=== PATIENT | male | born 1970 | race African-American/Black ===

== ENCOUNTER 2023-12-11 12:55 | Inpatient (IN) ==
[2023-12-11 13:21] LABS: Venous Bicarbonate HCO3 21.3 mmol/L (24-28)
[2023-12-11] MEDS: Cefepime 2 GM in Dextrose 2 GM/50 ML BAG IV ONE (13:24)
[2023-12-11 13:27] LABS: Hematocrit 38.9 % (38-53); Hemoglobin 12.8 g/dL (13.2-16.3); Mean Corpuscular Hemoglobin 27.3 pg (27-33); Mean Corpuscular Hgb Conc 32.9 g/dL (31-36); Mean Corpuscular Volume 82.9 fL (80-97); Mean Platelet Volume 8.8 fL (7.5-11.2); Platelet Count 282 10^3/uL (150-450); Red Blood Count 4.69 10^6/uL (4.06-5.63); Red Cell Distribution Width 13.8 % (12-17); White Blood Count 6.3 10^3/uL (3.6-10.2)
[2023-12-11 13:37] LABS: INR 0.98 (0.83-1.13)
[2023-12-11] MEDS: Lactated Ringers 1000 ml BAG IV.FLUID IV ONE (13:40)
[2023-12-11 13:56] LABS: ABS Basophils 0.1 10^3/uL (0.0-0.1); ABS Eosinophils 0.6 10^3/uL (0.0-0.5); ABS Lymphocytes 2.7 10^3/uL (1.0-4.8); ABS Monocytes 0.3 10^3/uL (0.0-1.1); ABS Neutrophils 2.7 10^3/uL (1.5-7.6); ABS Nucleated RBC 0.03 10^3/ul; Eosinophil % 8.9 %; Nucleated Red Blood Cells % 0.4 %/100WBC (0.0-0.8); RBC Morphology Normal (Normal)
[2023-12-11] MEDS ORDERED: Ondansetron 4 mg VIAL 2 MG/ML 2 ml VIAL ONE (14:02)
[2023-12-11] MEDS: metroNIDAZOLE IV 500 MG/100ML 500 MG/100 ML BAG IVPB ONE (14:06)
[2023-12-11] MEDS: Ondansetron 4 mg VIAL 2 MG/ML 2 ml VIAL IV ONE (14:22)
[2023-12-11] MEDS: Pantoprazole VIAL 40 MG VIAL IV ONE (14:22)
[2023-12-11 14:23] LABS: Albumin 4.7 g/dL (3.2-5.2); Albumin/Globulin Ratio 1.6 (1-3); C Reactive Protein 2.93 mg/L (<8.01); Calcium 10.4 mg/dL (8.6-10.3); Creatinine, Serum 1.41 mg/dL (0.67-1.17); Potassium 4.1 mmol/L (3.5-5.0); Total Bilirubin 0.8 mg/dL (0.2-1.0); Total Protein 7.7 g/dL (6.4-8.9); eGFR CKD-EPI 58.9 (>60)
[2023-12-11] MEDS ORDERED: Dextrose 50% Syringe 50 ml 25 GM/50 ML SYRINGE IV PUSH PRN (14:30)
[2023-12-11] MEDS: Lactated Ringers 1000 ml BAG 1,000 ML IV ONE (14:39)
[2023-12-11] MEDS: NORMOSOL-R pH 7.4 1000 mL BAG 1,000 ML IV ONE (14:40)
[2023-12-11 14:54] LABS: High Sensitivity Troponin 1 Hr 12 pg/mL (<20)
[2023-12-11] MEDS: Iodixanol (CONTRAST) 320 MG/ML 100 ML SDV IV ONE (15:08)
[2023-12-11] MEDS ORDERED: Vancomycin 1,000 MG in NS 0.9% 250 ml 250 ML IVPB SCH (16:00)
[2023-12-11] MEDS: Thiamine 100 MG/ML 2 ml VIAL 500 MG in NS 0.9% 250 ml 250 ML IV SCH (18:58)
[2023-12-11] MEDS: NORMOSOL-R pH 7.4 1000 mL BAG 1,000 ML IV SCH (19:09)
[2023-12-11] MEDS: Metoclopramide 5 MG/ML VIAL (10 mg) IV SLOW PU ONE (19:13)
[2023-12-11 19:40] LABS: Calcium 9.4 mg/dL (8.6-10.3); Creatinine, Serum 1.2 mg/dL (0.67-1.17); Potassium 4.5 mmol/L (3.5-5.0); eGFR CKD-EPI 71.4 (>60)
[2023-12-11 20:06] LABS: Venous Bicarbonate HCO3 19.1 mmol/L (24-28)
[2023-12-11 20:45] LABS: Urine Appearance Clear; Urine Bacteria Absent /HPF (Absent); Urine Bilirubin Negative (Negative); Urine Blood 1+ (Negative); Urine Color Colorless; Urine Glucose 4+ (>=1000 mg/dL) (Negative); Urine Ketones 2+ (Negative); Urine Nitrite Negative (Negative); Urine Protein Negative (Negative); Urine Red Blood Cell 3+(>10/hpf) /HPF (0-Trace); Urine Urobilinogen Negative (Negative); Urine White Blood Cell Trace(0-5/hpf) /HPF (0-Trace); Urine pH 5.5 (5.0-8.0)
[2023-12-11] MEDS: Insulin Infusion 100unit/100mL 100 UNIT/100 ML BAG IV SCH (21:08)
[2023-12-11] MEDS ORDERED: Ondansetron 4 mg VIAL 2 MG/ML 2 ml VIAL IV PRN (21:13)
[2023-12-11 22:29] LABS: Glucose Confirmatory 460 mg/dL (70-100)
[2023-12-11] MEDS: Enoxaparin 40 MG/0.4 ML SYR SUBCUT SCH (22:39)
[2023-12-11 22:50] LABS: Creatinine, Serum 1.25 mg/dL (0.67-1.17); Magnesium 1.8 mg/dL (1.9-2.7); Phosphorus 5.2 mg/dL (2.5-5.0); Potassium 4.8 mmol/L (3.5-5.0)
[2023-12-12 01:13] LABS: Venous Bicarbonate HCO3 22.6 mmol/L (24-28)
[2023-12-12] MEDS: Magnesium Sulfate IV 1GM/100ML 1 GM/100 ML BAG IV ONE (02:18)
[2023-12-12] MEDS: D5W 1/2 NS 1000 ml BAG 1,000 ML IV SCH (02:19)
[2023-12-12 02:21] LABS: Calcium 8.7 mg/dL (8.6-10.3); Creatinine, Serum 1.27 mg/dL (0.67-1.17); Magnesium 1.9 mg/dL (1.9-2.7); Phosphorus 3.5 mg/dL (2.5-5.0); Potassium 3.7 mmol/L (3.5-5.0); eGFR CKD-EPI 66.7 (>60)
[2023-12-12 05:41] LABS: Venous Bicarbonate HCO3 28.1 mmol/L (24-28)
[2023-12-12 05:47] LABS: ABS Basophils 0.1 10^3/uL (0.0-0.1); ABS Lymphocytes 0.9 10^3/uL (1.0-4.8); ABS Monocytes 0.8 10^3/uL (0.0-1.1); ABS Neutrophils 11.6 10^3/uL (1.5-7.6); Eosinophil % 0.2 %; Hematocrit 30.5 % (38-53); Hemoglobin 10.2 g/dL (13.2-16.3); Lymphocyte % 6.5 %; Mean Corpuscular Hemoglobin 27.1 pg (27-33); Mean Corpuscular Hgb Conc 33.3 g/dL (31-36); Mean Corpuscular Volume 81.4 fL (80-97); Mean Platelet Volume 7.8 fL (7.5-11.2); Platelet Count 238 10^3/uL (150-450); Red Blood Count 3.75 10^6/uL (4.06-5.63); Red Cell Distribution Width 14.2 % (12-17); White Blood Count 13.4 10^3/uL (3.6-10.2)
[2023-12-12 06:26] LABS: Calcium 8.7 mg/dL (8.6-10.3); Creatinine, Serum 1.21 mg/dL (0.67-1.17); Magnesium 2.1 mg/dL (1.9-2.7); Phosphorus 1.4 mg/dL (2.5-5.0); Potassium 3.5 mmol/L (3.5-5.0); eGFR CKD-EPI 70.7 (>60)
[2023-12-12] MEDS: KCL 20 MEQ/100 ML IVPREMIX 20 MEQ/100 ML BAG IV SCH (06:31)
[2023-12-12] MEDS: Thiamine IV 500 MG in NS 0.9% 250 ML (Wernicke-Korsakoff) IV SCH (07:34)
[2023-12-12] MEDS: Insulin GLARGINE 100 un/ml 10 ml VIAL SUBCUT SCH (10:11)
[2023-12-12] MEDS: ceFAZolin 2 GM PREMIX 2 GM/50 ML BAG IV SCH (10:14)
[2023-12-12] MEDS: Potassium & Sodium Phos 250 mg = 1 PACKET PO SCH (10:14)
[2023-12-12 10:23] LABS: Venous Bicarbonate HCO3 27.1 mmol/L (24-28)
[2023-12-12 11:04] LABS: Calcium 8.5 mg/dL (8.6-10.3); Creatinine, Serum 1.12 mg/dL (0.67-1.17); Phosphorus 1.1 mg/dL (2.5-5.0); Potassium 3.3 mmol/L (3.5-5.0); eGFR CKD-EPI 77.6 (>60)
[2023-12-12] MEDS: Polymyx/Trimethoprim OPTH.SOL 1 BTL RIGHT EYE SCH (12:11)
[2023-12-12] MEDS: Potassium Phosphate IV 15 MMOL in NS 0.9% 250 ml 250 ML IVPB ONE (13:46)
[2023-12-12] MEDS ORDERED: Vancomycin per Pharmacy 1 EA NOTE FOLLOW UP SCH (14:00)
[2023-12-12] MEDS: VANCOMYCIN 1500 MG X 1 DOSE, THEN PER PHARMACY PROTOCOL IVPB ONE (15:09)
[2023-12-12] MEDS: Potassium Chlor 20 meq TAB.ER PO ONE (18:45)
[2023-12-12] MEDS: Potassium Phosphate IV 30 MMOL in NS 0.9% 250 ml 250 ML IVPB ONE (20:58)
[2023-12-13] MEDS: Vancomycin 1000 MG in NS 0.9% 250 ML IVPB SCH (03:10)
[2023-12-13 04:58] LABS: ABS Basophils 0.1 10^3/uL (0.0-0.1); ABS Eosinophils 0.3 10^3/uL (0.0-0.5); ABS Monocytes 0.6 10^3/uL (0.0-1.1); ABS Neutrophils 7.8 10^3/uL (1.5-7.6); Eosinophil % 3.5 %; Hematocrit 29.2 % (38-53); Hemoglobin 10.1 g/dL (13.2-16.3); Lymphocyte % 10.3 %; Mean Corpuscular Hemoglobin 28.3 pg (27-33); Mean Corpuscular Hgb Conc 34.5 g/dL (31-36); Mean Corpuscular Volume 81.9 fL (80-97); Mean Platelet Volume 7.7 fL (7.5-11.2); Platelet Count 213 10^3/uL (150-450); Red Blood Count 3.57 10^6/uL (4.06-5.63); Red Cell Distribution Width 14.2 % (12-17); White Blood Count 9.8 10^3/uL (3.6-10.2)
[2023-12-13 05:42] LABS: Calcium 8.1 mg/dL (8.6-10.3); Creatinine, Serum 0.94 mg/dL (0.67-1.17); Magnesium 1.8 mg/dL (1.9-2.7); Phosphorus 4.8 mg/dL (2.5-5.0); Potassium 4.2 mmol/L (3.5-5.0); eGFR CKD-EPI 95.7 (>60)
[2023-12-13] MEDS: Magnesium Sulfate 2 gm BAG 2 GM/50 ML BAG IVPB ONE (08:24)
[2023-12-14 03:52] LABS: ABS Basophils 0.1 10^3/uL (0.0-0.1); ABS Eosinophils 0.4 10^3/uL (0.0-0.5); ABS Lymphocytes 0.8 10^3/uL (1.0-4.8); ABS Monocytes 0.5 10^3/uL (0.0-1.1); ABS Neutrophils 7.3 10^3/uL (1.5-7.6); ABS Nucleated RBC 0.01 10^3/ul; Eosinophil % 4.9 %; Hematocrit 30.8 % (38-53); Hemoglobin 10.3 g/dL (13.2-16.3); Lymphocyte % 9.1 %; Mean Corpuscular Hemoglobin 27.4 pg (27-33); Mean Corpuscular Hgb Conc 33.5 g/dL (31-36); Mean Corpuscular Volume 81.7 fL (80-97); Mean Platelet Volume 7.4 fL (7.5-11.2); Nucleated Red Blood Cells % 0.1 %/100WBC (0.0-0.8); Platelet Count 216 10^3/uL (150-450); Red Blood Count 3.77 10^6/uL (4.06-5.63); Red Cell Distribution Width 14.2 % (12-17); White Blood Count 9.1 10^3/uL (3.6-10.2)
[2023-12-14 04:17] LABS: Calcium 8.4 mg/dL (8.6-10.3); Creatinine, Serum 0.77 mg/dL (0.67-1.17); Magnesium 2.1 mg/dL (1.9-2.7); Phosphorus 3.3 mg/dL (2.5-5.0); Potassium 3.9 mmol/L (3.5-5.0); eGFR CKD-EPI 105.7 (>60)
[2023-12-14] MEDS ORDERED: Thiamine IV 100 MG/ML VIAL (only for Bannana Bags !) IVPB SCH (09:00)
[2023-12-14] MEDS: Thiamine IV 250 MG in NS 0.9% 100 ML Q24H IV SCH (09:38)
[2023-12-14 10:26] VITALS: BP 148/98
[2023-12-14] MEDS ORDERED: Vancomycin Trough Check NOTE FOLLOW UP ONE (14:30)
== END 2023-12-14 11:15 | disposition home or self-care (01) | DRG 638 ==
LOC: ED 12:55 → EDHOLD 15:41 → ICU 16:19
PROVIDERS: ADMIT Internal Medicine Critical Care Medicine; ATTEND Internal Medicine Critical Care Medicine

== ENCOUNTER 2023-12-31 07:07 | Inpatient (IN) ==
[2023-12-31] MEDS: Lactated Ringers 1000 ml BAG 1,000 ML IV SCH ×2 (08:02→10:21)
[2023-12-31 08:03] LABS: Venous Bicarbonate HCO3 19.3 mmol/L (24-28)
[2023-12-31 08:14] LABS: ABS Basophils 0.1 10^3/uL (0.0-0.1); ABS Eosinophils 0.2 10^3/uL (0.0-0.5); ABS Lymphocytes 0.9 10^3/uL (1.0-4.8); ABS Monocytes 0.3 10^3/uL (0.0-1.1); ABS Neutrophils 5.2 10^3/uL (1.5-7.6); ABS Nucleated RBC 0.01 10^3/ul; Eosinophil % 3.6 %; Hematocrit 32.4 % (38-53); Hemoglobin 10.6 g/dL (13.2-16.3); Lymphocyte % 13.5 %; Mean Corpuscular Hemoglobin 27.8 pg (27-33); Mean Corpuscular Hgb Conc 32.6 g/dL (31-36); Mean Corpuscular Volume 85.3 fL (80-97); Mean Platelet Volume 7.9 fL (7.5-11.2); Nucleated Red Blood Cells % 0.1 %/100WBC (0.0-0.8); Platelet Count 365 10^3/uL (150-450); Red Cell Distribution Width 13.8 % (12-17); White Blood Count 6.7 10^3/uL (3.6-10.2)
[2023-12-31 08:32] LABS: Lipase < 10 U/L (11.0-82.0); Magnesium 1.7 mg/dL (1.9-2.7); Phosphorus 3.7 mg/dL (2.5-5.0)
[2023-12-31 08:38] LABS: Albumin/Globulin Ratio 1.4 (1-3); Calcium 9.3 mg/dL (8.6-10.3); Creatinine, Serum 1.18 mg/dL (0.67-1.17); Globulin 2.9 g/dL (2-4); Magnesium 1.9 mg/dL (1.9-2.7); Phosphorus 3.9 mg/dL (2.5-5.0); Potassium 4.8 mmol/L (3.5-5.0); Total Bilirubin 0.6 mg/dL (0.2-1.0); Total Protein 6.9 g/dL (6.4-8.9); eGFR CKD-EPI 72.9 (>60)
[2023-12-31] MEDS: Ondansetron 4 mg VIAL 2 MG/ML 2 ml VIAL IV ONE (08:47)
[2023-12-31 09:44] LABS: High Sensitivity Troponin 1 Hr 4 pg/mL (<20)
[2023-12-31] MEDS ORDERED: Dextrose 50% Syringe 50 ml 25 GM/50 ML SYRINGE IV PUSH PRN ×3 (09:49→15:57)
[2023-12-31] MEDS: KCL 20 MEQ/100 ML IVPREMIX 20 MEQ/100 ML BAG IV ONE (10:09)
[2023-12-31] MEDS: Magnesium Sulfate 2 gm BAG 2 GM/50 ML BAG IVPB ONE (10:09)
[2023-12-31] MEDS: Insulin Infusion 100unit/100mL 100 UNIT/100 ML BAG IV SCH ×2 (10:16→16:36)
[2023-12-31] MEDS: Prochlorperazine 5 mg/ml 2 ml VIAL (10 mg) IV ONE (10:20)
[2023-12-31 10:46] LABS: Urine Appearance Clear; Urine Bacteria Absent /HPF (Absent); Urine Bilirubin Negative (Negative); Urine Blood 2+ (Negative); Urine Color Colorless; Urine Glucose 4+ (>=1000 mg/dL) (Negative); Urine Ketones 2+ (Negative); Urine Nitrite Negative (Negative); Urine Protein Negative (Negative); Urine Red Blood Cell 3+(>10/hpf) /HPF (0-Trace); Urine Urobilinogen Negative (Negative); Urine White Blood Cell Absent /HPF (0-Trace); Urine pH 5.5 (5.0-8.0)
[2023-12-31 12:46] LABS: Venous Bicarbonate HCO3 18.8 mmol/L (24-28)
[2023-12-31] MEDS ORDERED: Ondansetron 4 mg VIAL 2 MG/ML 2 ml VIAL IV PRN (13:29)
[2023-12-31] MEDS ORDERED: Insulin Infusion 100unit/100mL 100 UNIT/100 ML BAG IV SCH ×2 (14:00→17:00)
[2023-12-31] MEDS: Pantoprazole VIAL 40 MG VIAL IV ONE (14:02)
[2023-12-31] MEDS: Enoxaparin 60 MG/0.6 ML SYR SUBCUT SCH (14:15)
[2023-12-31] MEDS: Potassium Chloride IV 20 MEQ in Lactated Ringers 1000 ml BAG 1,000 ML IVPB SCH (14:31)
[2023-12-31 14:34] LABS: Glucose Confirmatory 446 mg/dL (70-100)
[2023-12-31 14:35] LABS: Urine Benzodiazepine Screen None Detected (None Detect); Urine Cannabinoids Screen None Detected (None Detect); Urine Opiates Screen None Detected (None Detect)
[2023-12-31 14:59] LABS: Calcium 9.3 mg/dL (8.6-10.3); Creatinine, Serum 1.24 mg/dL (0.67-1.17); Magnesium 2.3 mg/dL (1.9-2.7); Phosphorus 3.3 mg/dL (2.5-5.0); Potassium 4.4 mmol/L (3.5-5.0); eGFR CKD-EPI 68.7 (>60)
[2023-12-31] MEDS: Insulin GLARGINE 100 un/ml 10 ml VIAL SUBCUT ONE (16:33)
[2023-12-31] MEDS: Lactated Ringers 1000 ml BAG 1,000 ML IV ONE (16:36)
[2023-12-31 20:51] LABS: Calcium 8.9 mg/dL (8.6-10.3); Creatinine, Serum 1.2 mg/dL (0.67-1.17); Potassium 4.3 mmol/L (3.5-5.0); eGFR CKD-EPI 71.4 (>60)
[2023-12-31] MEDS: Enoxaparin 40 MG/0.4 ML SYR SUBCUT SCH (21:23)
[2023-12-31 23:59] LABS: Calcium 8.8 mg/dL (8.6-10.3); Creatinine, Serum 1.06 mg/dL (0.67-1.17); Potassium 4.4 mmol/L (3.5-5.0); eGFR CKD-EPI 82.9 (>60)
[2024-01-01 05:59] LABS: ABS Basophils 0.1 10^3/uL (0.0-0.1); ABS Eosinophils 0.2 10^3/uL (0.0-0.5); ABS Lymphocytes 1.4 10^3/uL (1.0-4.8); ABS Monocytes 0.6 10^3/uL (0.0-1.1); ABS Neutrophils 7.4 10^3/uL (1.5-7.6); Eosinophil % 2.3 %; Hematocrit 31.1 % (38-53); Hemoglobin 10.4 g/dL (13.2-16.3); Lymphocyte % 14.6 %; Mean Corpuscular Hemoglobin 27.4 pg (27-33); Mean Corpuscular Hgb Conc 33.5 g/dL (31-36); Mean Corpuscular Volume 81.9 fL (80-97); Mean Platelet Volume 7.3 fL (7.5-11.2); Platelet Count 361 10^3/uL (150-450); Red Cell Distribution Width 13.9 % (12-17); White Blood Count 9.8 10^3/uL (3.6-10.2)
[2024-01-01 06:21] LABS: Calcium 8.8 mg/dL (8.6-10.3); Creatinine, Serum 1.05 mg/dL (0.67-1.17); eGFR CKD-EPI 83.8 (>60)
[2024-01-01] MEDS: Insulin GLARGINE 100 un/ml 10 ml VIAL SUBCUT SCH (09:09)
[2024-01-02 06:15] LABS: ABS Basophils 0.1 10^3/uL (0.0-0.1); ABS Eosinophils 0.2 10^3/uL (0.0-0.5); ABS Monocytes 0.3 10^3/uL (0.0-1.1); ABS Neutrophils 2.6 10^3/uL (1.5-7.6); Eosinophil % 5.2 %; Hematocrit 28.8 % (38-53); Hemoglobin 9.8 g/dL (13.2-16.3); Lymphocyte % 23.5 %; Mean Corpuscular Hgb Conc 34.2 g/dL (31-36); Platelet Count 295 10^3/uL (150-450); Red Blood Count 3.51 10^6/uL (4.06-5.63); Red Cell Distribution Width 13.9 % (12-17); White Blood Count 4.3 10^3/uL (3.6-10.2)
[2024-01-02 06:49] LABS: Calcium 8.3 mg/dL (8.6-10.3); Creatinine, Serum 0.91 mg/dL (0.67-1.17); Potassium 3.8 mmol/L (3.5-5.0); eGFR CKD-EPI 99.5 (>60)
[2024-01-02 15:41] VITALS: BP 163/104
== END 2024-01-02 19:30 | disposition home or self-care (01) | DRG 638 ==
LOC: ED 07:07 → EDHOLD 13:21 → SUATTDRO 13:21 → ICU 14:38 → EDHOLD 15:43 → MEDTELE 20:02
PROVIDERS: ADMIT Internal Medicine; ATTEND Student in an Organized Health Care Education/Training Program

== ENCOUNTER 2024-01-18 13:55 | Inpatient (IN) ==
[2024-01-18] MEDS: Lactated Ringers 1000 ml BAG 1,000 ML IV ONE (14:30)
[2024-01-18 14:39] LABS: Venous Bicarbonate HCO3 13.3 mmol/L (24-28)
[2024-01-18] MEDS: Ondansetron 4 mg VIAL 2 MG/ML 2 ml VIAL IV ONE ×2 (14:52→15:56)
[2024-01-18 14:54] LABS: INR 1.13 (0.85-1.14)
[2024-01-18 15:20] LABS: ALT 11 U/L (7-52); AST 10 U/L (13-39); Albumin 4.5 g/dL (3.2-5.2); Albumin/Globulin Ratio 1.3 (1-3); Alcohol, S < 13 mg/dL (<13); Alkaline Phosphatase 112 U/L (35-149); Anion Gap 28 mmol/L (2-16); Blood Urea Nitrogen 27 mg/dL (6-24); C Reactive Protein 6.89 mg/L (<8.01); CO2 Carbon Dioxide 15 mmol/L (22-32); Calcium 10.2 mg/dL (8.6-10.3); Chloride 87 mmol/L (101-111); Creatinine, Serum 1.73 mg/dL (0.67-1.17); Globulin 3.5 g/dL (2-4); Potassium 5.5 mmol/L (3.5-5.0); Sodium 130 mmol/L (135-145); Total Bilirubin 0.9 mg/dL (0.2-1.0)
[2024-01-18] MEDS ORDERED: Dextrose 50% Syringe 50 ml 25 GM/50 ML SYRINGE IV PUSH PRN (15:23)
[2024-01-18 15:37] LABS: Hematocrit 37.3 % (38-53); Hemoglobin 11.1 g/dL (13.2-16.3); Mean Corpuscular Hemoglobin 26.6 pg (27-33); Mean Corpuscular Hgb Conc 29.6 g/dL (31-36); Mean Corpuscular Volume 89.9 fL (80-97); Mean Platelet Volume 7.6 fL (7.5-11.2); Platelet Count 511 10^3/uL (150-450); Red Blood Count 4.16 10^6/uL (4.06-5.63); Red Cell Distribution Width 14.8 % (12-17); White Blood Count 19.3 10^3/uL (3.6-10.2)
[2024-01-18 15:38] LABS: ABS Basophils 0.1 10^3/uL (0.0-0.1); ABS Lymphocytes 0.3 10^3/uL (1.0-4.8); ABS Monocytes 0.3 10^3/uL (0.0-1.1); ABS Neutrophils 18.6 10^3/uL (1.5-7.6); Lymphocyte % 1.6 %
[2024-01-18] MEDS: NORMOSOL-R pH 7.4 1000 mL BAG 1,000 ML IV SCH ×2 (15:49→16:20)
[2024-01-18 15:57] LABS: Glucose 864 mg/dL (70-100)
[2024-01-18] MEDS: Insulin GLARGINE 100 un/ml 10 ml VIAL SUBCUT ONE (16:12)
[2024-01-18] MEDS: cefTRIAXone 1 gm/50 mL D5W 1 GM/50 ML BAG IV ONE (16:13)
[2024-01-18] MEDS: Insulin Infusion 100unit/100mL 100 UNIT/100 ML BAG IV SCH (16:20)
[2024-01-18 18:07] LABS: Urine Appearance Clear; Urine Bilirubin Negative (Negative); Urine Blood Negative (Negative); Urine Color Colorless; Urine Glucose 4+ (>=1000 mg/dL) (Negative); Urine Ketones 2+ (Negative); Urine Nitrite Negative (Negative); Urine Protein Negative (Negative); Urine Urobilinogen Negative (Negative)
[2024-01-18 18:47] LABS: % Iron Saturation 7 % (15-55); .Transferrin 210 mg/dL (203-362); Anion Gap 23 mmol/L (2-16); Blood Urea Nitrogen 27 mg/dL (6-24); CO2 Carbon Dioxide 18 mmol/L (22-32); Calcium 9.1 mg/dL (8.6-10.3); Chloride 93 mmol/L (101-111); Creatinine, Serum 1.62 mg/dL (0.67-1.17); Glucose 731 mg/dL (70-100); Iron < 20 ug/dL (50-212); Magnesium 2.3 mg/dL (1.9-2.7); Potassium 4.7 mmol/L (3.5-5.0); Sodium 134 mmol/L (135-145); Total Iron Binding Capacity 294 mcg/dL (250-450); Unsaturated Iron Binding 274 ug/dL; eGFR CKD-EPI 49.8 (>60)
[2024-01-18 19:26] LABS: Ferritin 67.8 ng/mL (24-336)
[2024-01-18 19:29] LABS: Folate 12.24 ng/mL (5.90-24.80)
[2024-01-18 19:30] LABS: Vitamin B12 415 pg/mL (180-914)
[2024-01-18] MEDS ORDERED: Heparin 5000 UNITS/ML 1 mL VIAL SUBCUT SCH (21:00)
[2024-01-18 21:23] LABS: Calcium 9.4 mg/dL (8.6-10.3); Creatinine, Serum 1.58 mg/dL (0.67-1.17); Magnesium 2.3 mg/dL (1.9-2.7); Potassium 4.3 mmol/L (3.5-5.0); eGFR CKD-EPI 51.3 (>60)
[2024-01-18] MEDS: Enoxaparin 40 MG/0.4 ML SYR SUBCUT SCH (21:34)
[2024-01-18 21:54] LABS: Glucose Confirmatory 496 mg/dL (70-100)
[2024-01-18 23:04] LABS: Glucose Confirmatory 440 mg/dL (70-100)
[2024-01-18] MEDS: Iodixanol (CONTRAST) 320 MG/ML 100 ML SDV IV ONE (23:51)
[2024-01-18] MEDS: Ondansetron 4 mg VIAL 2 MG/ML 2 ml VIAL IV PRN (23:55)
[2024-01-19] MEDS: D5LR 20 MEQ KCL 1000 ml BAG 1,000 ML IV SCH (03:44)
[2024-01-19 03:59] LABS: Calcium 9.2 mg/dL (8.6-10.3); Creatinine, Serum 1.45 mg/dL (0.67-1.17); Magnesium 2.2 mg/dL (1.9-2.7); Potassium 3.8 mmol/L (3.5-5.0); eGFR CKD-EPI 56.9 (>60)
[2024-01-19 04:46] LABS: ABS Basophils 0.1 10^3/uL (0.0-0.1); ABS Lymphocytes 0.8 10^3/uL (1.0-4.8); ABS Monocytes 0.8 10^3/uL (0.0-1.1); ABS Neutrophils 13.7 10^3/uL (1.5-7.6); ABS Nucleated RBC 0.02 10^3/ul; Hematocrit 28.7 % (38-53); Hemoglobin 9.7 g/dL (13.2-16.3); Lymphocyte % 5.2 %; Mean Corpuscular Hemoglobin 27.4 pg (27-33); Mean Corpuscular Hgb Conc 33.9 g/dL (31-36); Mean Corpuscular Volume 80.8 fL (80-97); Mean Platelet Volume 6.8 fL (7.5-11.2); Nucleated Red Blood Cells % 0.1 %/100WBC (0.0-0.8); Platelet Count 436 10^3/uL (150-450); Red Blood Count 3.55 10^6/uL (4.06-5.63); Red Cell Distribution Width 14.1 % (12-17); White Blood Count 15.3 10^3/uL (3.6-10.2)
[2024-01-19 05:23] LABS: Calcium 9.2 mg/dL (8.6-10.3); Creatinine, Serum 1.38 mg/dL (0.67-1.17); Magnesium 2.2 mg/dL (1.9-2.7); Potassium 3.9 mmol/L (3.5-5.0); eGFR CKD-EPI 60.4 (>60)
[2024-01-19] MEDS ORDERED: Dextrose 50% Syringe 50 ml 25 GM/50 ML SYRINGE IV PUSH PRN (05:45)
[2024-01-19] MEDS ORDERED: Vancomycin per Pharmacy 1 EA NOTE FOLLOW UP SCH (08:00)
[2024-01-19] MEDS: Lactated Ringers 1000 ml BAG 1,000 ML IV SCH (11:30)
[2024-01-19] MEDS: ceFAZolin 2 GM PREMIX 2 GM/50 ML BAG IV SCH (11:40)
[2024-01-19] MEDS: Vancomycin 1,250 MG in NS 0.9% 250 ml 250 ML IVPB ONE (12:30)
[2024-01-19] MEDS: Pantoprazole VIAL 40 MG VIAL IV SCH (12:47)
[2024-01-19] MEDS: D5LR 1000 ml BAG 1,000 ML IV SCH (12:58)
[2024-01-19] MEDS ORDERED: Insulin GLARGINE 100 un/ml 10 ml VIAL SUBCUT ONE ×2 (14:00→21:00)
[2024-01-19 16:06] LABS: Calcium 8.9 mg/dL (8.6-10.3); Creatinine, Serum 1.14 mg/dL (0.67-1.17); Potassium 4.1 mmol/L (3.5-5.0)
[2024-01-19] MEDS: Insulin GLARGINE 100 un/ml 10 ml VIAL SUBCUT ONE (17:16)
[2024-01-19] MEDS: Labetalol IV 5 MG/ML 20 ml VIAL IV PUSH PRN (17:42)
[2024-01-20 04:42] LABS: ABS Basophils 0.1 10^3/uL (0.0-0.1); ABS Monocytes 0.8 10^3/uL (0.0-1.1); ABS Neutrophils 10.5 10^3/uL (1.5-7.6); ABS Nucleated RBC 0.02 10^3/ul; Eosinophil % 0.3 %; Hematocrit 26.4 % (38-53); Hemoglobin 8.6 g/dL (13.2-16.3); Lymphocyte % 8.1 %; Mean Corpuscular Hemoglobin 26.7 pg (27-33); Mean Corpuscular Hgb Conc 32.6 g/dL (31-36); Mean Corpuscular Volume 81.8 fL (80-97); Mean Platelet Volume 6.9 fL (7.5-11.2); Nucleated Red Blood Cells % 0.1 %/100WBC (0.0-0.8); Platelet Count 340 10^3/uL (150-450); Red Blood Count 3.23 10^6/uL (4.06-5.63); Red Cell Distribution Width 14.4 % (12-17); White Blood Count 12.5 10^3/uL (3.6-10.2)
[2024-01-20 05:00] LABS: Calcium 8.3 mg/dL (8.6-10.3); Creatinine, Serum 1.01 mg/dL (0.67-1.17); Magnesium 1.8 mg/dL (1.9-2.7); Potassium 3.6 mmol/L (3.5-5.0); eGFR CKD-EPI 87.8 (>60)
[2024-01-20] MEDS: Magnesium Sulfate 2 gm BAG 2 GM/50 ML BAG IVPB ONE (07:53)
[2024-01-20] MEDS: Insulin GLARGINE 100 un/ml 10 ml VIAL SUBCUT ONE (11:18)
[2024-01-20] MEDS: KCL 10 MEQ/50 ML IVPREMIX 10 MEQ/50 ML BAG IV SCH (12:46)
[2024-01-20] MEDS: Metoclopramide 5 MG/ML VIAL (10 mg) IV PRN (15:54)
[2024-01-20] MEDS ORDERED: Insulin LISPRO FOR INSULIN PUMP SUBCUT SCH (16:00)
[2024-01-20] MEDS: Prochlorperazine 5 mg/ml 2 ml VIAL (10 mg) IV PRN (16:22)
[2024-01-21 07:43] LABS: ABS Basophils 0.1 10^3/uL (0.0-0.1); ABS Eosinophils 0.1 10^3/uL (0.0-0.5); ABS Lymphocytes 1.1 10^3/uL (1.0-4.8); ABS Monocytes 0.5 10^3/uL (0.0-1.1); ABS Neutrophils 3.7 10^3/uL (1.5-7.6); ABS Nucleated RBC 0.01 10^3/ul; Eosinophil % 2.7 %; Hematocrit 27.1 % (38-53); Hemoglobin 9.2 g/dL (13.2-16.3); Lymphocyte % 19.2 %; Mean Corpuscular Hemoglobin 27.9 pg (27-33); Mean Platelet Volume 6.9 fL (7.5-11.2); Nucleated Red Blood Cells % 0.2 %/100WBC (0.0-0.8); Platelet Count 302 10^3/uL (150-450); Red Cell Distribution Width 14.1 % (12-17); White Blood Count 5.5 10^3/uL (3.6-10.2)
[2024-01-21 08:12] LABS: Calcium 8.5 mg/dL (8.6-10.3); Creatinine, Serum 0.86 mg/dL (0.67-1.17); eGFR CKD-EPI 102.3 (>60)
[2024-01-21] MEDS ORDERED: Insulin GLARGINE 100 un/ml 10 ml VIAL SUBCUT SCH (09:00)
[2024-01-22 08:05] LABS: ABS Basophils 0.1 10^3/uL (0.0-0.1); ABS Eosinophils 0.3 10^3/uL (0.0-0.5); ABS Lymphocytes 1.1 10^3/uL (1.0-4.8); ABS Monocytes 0.3 10^3/uL (0.0-1.1); ABS Neutrophils 2.4 10^3/uL (1.5-7.6); Eosinophil % 6.2 %; Hematocrit 26.6 % (38-53); Hemoglobin 9.1 g/dL (13.2-16.3); Lymphocyte % 25.9 %; Mean Corpuscular Hgb Conc 34.2 g/dL (31-36); Mean Corpuscular Volume 81.9 fL (80-97); Mean Platelet Volume 6.9 fL (7.5-11.2); Nucleated Red Blood Cells % 0.1 %/100WBC (0.0-0.8); Platelet Count 264 10^3/uL (150-450); Red Blood Count 3.25 10^6/uL (4.06-5.63); Red Cell Distribution Width 13.7 % (12-17); White Blood Count 4.2 10^3/uL (3.6-10.2)
[2024-01-22 08:35] LABS: C Reactive Protein 3.77 mg/L (<8.01); Calcium 8.2 mg/dL (8.6-10.3); Creatinine, Serum 0.72 mg/dL (0.67-1.17); Potassium 3.5 mmol/L (3.5-5.0); eGFR CKD-EPI 107.9 (>60)
[2024-01-22 13:20] LABS: Urine Benzodiazepine Screen None Detected (None Detect); Urine Cannabinoids Screen None Detected (None Detect); Urine Opiates Screen None Detected (None Detect)
[2024-01-23] MEDS ORDERED: Sulfur Hexaflouride MICROSPHR 25 MG VIAL IV PRN (16:07)
[2024-01-24 06:54] LABS: Calcium 8.3 mg/dL (8.6-10.3); Creatinine, Serum 0.85 mg/dL (0.67-1.17); Potassium 3.7 mmol/L (3.5-5.0)
[2024-01-24 07:29] LABS: ABS Basophils 0.1 10^3/uL (0.0-0.1); ABS Eosinophils 0.4 10^3/uL (0.0-0.5); ABS Lymphocytes 1.4 10^3/uL (1.0-4.8); ABS Monocytes 0.6 10^3/uL (0.0-1.1); ABS Neutrophils 4.9 10^3/uL (1.5-7.6); ABS Nucleated RBC 0.01 10^3/ul; Eosinophil % 5.4 %; Hematocrit 28.8 % (38-53); Hemoglobin 9.6 g/dL (13.2-16.3); Lymphocyte % 18.9 %; Mean Corpuscular Hemoglobin 27.6 pg (27-33); Mean Corpuscular Hgb Conc 33.5 g/dL (31-36); Mean Corpuscular Volume 82.5 fL (80-97); Mean Platelet Volume 7.9 fL (7.5-11.2); Nucleated Red Blood Cells % 0.1 %/100WBC (0.0-0.8); Platelet Count 292 10^3/uL (150-450); Red Blood Count 3.49 10^6/uL (4.06-5.63); Red Cell Distribution Width 14.1 % (12-17); White Blood Count 7.4 10^3/uL (3.6-10.2)
[2024-01-25] MEDS ORDERED: Flumazenil 0.5 mg/5 ml 0.1 MG/ML 5 ml VIAL ONE (14:16)
[2024-01-25] MEDS ORDERED: Naloxone 0.4 mg VIAL 0.4 mg/ml 1 ml VIAL ONE (14:16)
[2024-01-25] MEDS ORDERED: fentaNYL 100 mcg/2 ml 50 MCG/ML VIAL ONE (14:16)
[2024-01-25] MEDS ORDERED: Midazolam 5 mg/5 ml VIAL 1 mg/ml 5 ml VIAL (5 mg) ONE (14:17)
[2024-01-25] MEDS: fentaNYL 100 mcg/2 ml 50 MCG/ML VIAL IV SLOW PU ONE (15:54)
[2024-01-25] MEDS: Midazolam 10 mg/10 ml VIAL 1 mg/ml 10 ml VIAL (10 mg) IV SLOW PU ONE (15:54)
[2024-01-26] MEDS ORDERED: Polyethylene Glycol 3350 17 GM PACKET PO PRN (05:42)
[2024-01-26 06:18] LABS: ABS Basophils 0.1 10^3/uL (0.0-0.1); ABS Eosinophils 0.3 10^3/uL (0.0-0.5); ABS Lymphocytes 0.9 10^3/uL (1.0-4.8); ABS Monocytes 0.6 10^3/uL (0.0-1.1); ABS Neutrophils 6.7 10^3/uL (1.5-7.6); Hematocrit 27.3 % (38-53); Hemoglobin 9.1 g/dL (13.2-16.3); Lymphocyte % 10.6 %; Mean Corpuscular Hemoglobin 27.4 pg (27-33); Mean Corpuscular Hgb Conc 33.5 g/dL (31-36); Mean Corpuscular Volume 81.9 fL (80-97); Mean Platelet Volume 7.3 fL (7.5-11.2); Platelet Count 344 10^3/uL (150-450); Red Blood Count 3.33 10^6/uL (4.06-5.63); Red Cell Distribution Width 14.1 % (12-17); White Blood Count 8.6 10^3/uL (3.6-10.2)
[2024-01-26 06:54] LABS: Calcium 8.2 mg/dL (8.6-10.3); Creatinine, Serum 0.79 mg/dL (0.67-1.17); Potassium 4.1 mmol/L (3.5-5.0); eGFR CKD-EPI 104.3 (>60)
[2024-01-26 15:03] VITALS: BP 119/81
== END 2024-01-26 16:40 | disposition home or self-care (01) | DRG 637 ==
LOC: ED 13:55 → EDHOLD 16:00 → SUATTDRO 16:00 → ICU 19:22 → MEDTELE 01-20 10:33
PROVIDERS: ADMIT Internal Medicine; ATTEND Internal Medicine

== ENCOUNTER 2024-02-23 00:01 | Observation (INO) ==
[2024-02-23 00:38] LABS: ABS Basophils 0.1 10^3/uL (0.0-0.1); ABS Eosinophils 0.3 10^3/uL (0.0-0.5); ABS Monocytes 0.4 10^3/uL (0.0-1.1); ABS Neutrophils 4.4 10^3/uL (1.5-7.6); ABS Nucleated RBC 0.01 10^3/ul; Eosinophil % 5.3 %; Hematocrit 32.1 % (38-53); Hemoglobin 10.1 g/dL (13.2-16.3); Lymphocyte % 16.4 %; Mean Corpuscular Hgb Conc 31.5 g/dL (31-36); Mean Corpuscular Volume 85.7 fL (80-97); Mean Platelet Volume 8.1 fL (7.5-11.2); Nucleated Red Blood Cells % 0.1 %/100WBC (0.0-0.8); Platelet Count 286 10^3/uL (150-450); Red Blood Count 3.75 10^6/uL (4.06-5.63); Red Cell Distribution Width 15.2 % (12-17); White Blood Count 6.3 10^3/uL (3.6-10.2)
[2024-02-23 00:39] LABS: Venous Bicarbonate HCO3 19.4 mmol/L (24-28)
[2024-02-23] MEDS: Lactated Ringers 1000 ml BAG 1,000 ML IV ONE ×2 (00:56→02:13)
[2024-02-23 01:44] LABS: Albumin 4.3 g/dL (3.2-5.2); Albumin/Globulin Ratio 1.5 (1-3); Calcium 9.4 mg/dL (8.6-10.3); Creatinine, Serum 1.18 mg/dL (0.67-1.17); Globulin 2.9 g/dL (2-4); Potassium 4.9 mmol/L (3.5-5.0); Total Bilirubin 0.7 mg/dL (0.2-1.0); Total Protein 7.2 g/dL (6.4-8.9); eGFR CKD-EPI 72.4 (>60)
[2024-02-23] MEDS: Ondansetron 4 mg VIAL 2 MG/ML 2 ml VIAL IV ONE ×2 (01:45→02:40)
[2024-02-23] MEDS: NORMOSOL-R pH 7.4 1000 mL BAG 1,000 ML IV ONE (02:41)
[2024-02-23] MEDS: Insulin Infusion 100unit/100mL 100 UNIT/100 ML BAG IV SCH ×3 (03:06→14:56)
[2024-02-23] MEDS: NORMOSOL-R pH 7.4 1000 mL BAG 1,000 ML IV SCH (03:57)
[2024-02-23 04:20] LABS: Urine Appearance Clear; Urine Bilirubin Negative (Negative); Urine Blood Negative (Negative); Urine Color Colorless; Urine Glucose 4+ (>=1000 mg/dL) (Negative); Urine Ketones 1+ (Negative); Urine Nitrite Negative (Negative); Urine Protein Negative (Negative); Urine Urobilinogen Negative (Negative); Urine pH 5.5 (5.0-8.0)
[2024-02-23 05:46] LABS: Glucose Confirmatory 459 mg/dL (70-100)
[2024-02-23 06:13] LABS: Calcium 8.8 mg/dL (8.6-10.3); Creatinine, Serum 1.32 mg/dL (0.67-1.17); Phosphorus 3.2 mg/dL (2.5-5.0); eGFR CKD-EPI 63.3 (>60)
[2024-02-23] MEDS: KCL 20 MEQ/100 ML IVPREMIX 20 MEQ/100 ML BAG IV SCH (06:35)
[2024-02-23] MEDS ORDERED: Ondansetron 4 mg VIAL 2 MG/ML 2 ml VIAL IV PRN (06:45)
[2024-02-23 07:32] LABS: ABS Basophils 0.1 10^3/uL (0.0-0.1); ABS Lymphocytes 0.6 10^3/uL (1.0-4.8); ABS Monocytes 0.7 10^3/uL (0.0-1.1); ABS Neutrophils 12.1 10^3/uL (1.5-7.6); Eosinophil % 0.1 %; Hematocrit 28.7 % (38-53); Hemoglobin 9.5 g/dL (13.2-16.3); Lymphocyte % 4.1 %; Mean Corpuscular Hemoglobin 27.5 pg (27-33); Mean Corpuscular Hgb Conc 32.9 g/dL (31-36); Mean Corpuscular Volume 83.4 fL (80-97); Mean Platelet Volume 7.7 fL (7.5-11.2); Platelet Count 276 10^3/uL (150-450); Red Blood Count 3.45 10^6/uL (4.06-5.63); Red Cell Distribution Width 14.7 % (12-17); White Blood Count 13.4 10^3/uL (3.6-10.2)
[2024-02-23 08:23] LABS: Calcium 8.8 mg/dL (8.6-10.3); Creatinine, Serum 1.21 mg/dL (0.67-1.17); Magnesium 1.9 mg/dL (1.9-2.7); Phosphorus 2.4 mg/dL (2.5-5.0); Potassium 3.9 mmol/L (3.5-5.0); eGFR CKD-EPI 70.3 (>60)
[2024-02-23] MEDS: D5LR 1000 ml BAG 1,000 ML IV SCH (08:34)
[2024-02-23] MEDS: Pantoprazole VIAL 40 MG VIAL IV SCH (09:33)
[2024-02-23 12:14] LABS: Calcium 8.8 mg/dL (8.6-10.3); Creatinine, Serum 1.11 mg/dL (0.67-1.17); Magnesium 1.9 mg/dL (1.9-2.7); Phosphorus 1.8 mg/dL (2.5-5.0); eGFR CKD-EPI 77.9 (>60)
[2024-02-23] MEDS: Insulin GLARGINE 100 un/ml 10 ml VIAL SUBCUT SCH (12:38)
[2024-02-23] MEDS: Dextrose 50% Syringe 50 ml 25 GM/50 ML SYRINGE IV PUSH PRN (20:16)
[2024-02-24] MEDS: D5LR 1000 ml BAG 1,000 ML IV SCH (02:33)
[2024-02-24 05:09] LABS: ABS Basophils 0.1 10^3/uL (0.0-0.1); ABS Eosinophils 0.3 10^3/uL (0.0-0.5); ABS Lymphocytes 1.2 10^3/uL (1.0-4.8); ABS Monocytes 0.7 10^3/uL (0.0-1.1); ABS Neutrophils 7.9 10^3/uL (1.5-7.6); Hematocrit 29.2 % (38-53); Hemoglobin 9.6 g/dL (13.2-16.3); Lymphocyte % 11.8 %; Mean Corpuscular Hgb Conc 32.9 g/dL (31-36); Mean Platelet Volume 7.5 fL (7.5-11.2); Platelet Count 279 10^3/uL (150-450); Red Blood Count 3.56 10^6/uL (4.06-5.63); White Blood Count 10.2 10^3/uL (3.6-10.2)
[2024-02-24 05:44] LABS: Calcium 8.7 mg/dL (8.6-10.3); Creatinine, Serum 0.99 mg/dL (0.67-1.17); Magnesium 1.8 mg/dL (1.9-2.7); Phosphorus 2.7 mg/dL (2.5-5.0); Potassium 3.9 mmol/L (3.5-5.0); eGFR CKD-EPI 89.4 (>60)
[2024-02-24] MEDS: Magnesium Sulfate 2 gm BAG 2 GM/50 ML BAG IVPB ONE (09:22)
[2024-02-24 12:08] VITALS: BP 139/87
== END 2024-02-24 13:10 | disposition home or self-care (01) ==
LOC: ED 00:01 → INTOOBSV 03:09 → EDHOLD 03:09 → ICU 07:37
PROVIDERS: ADMIT Student in an Organized Health Care Education/Training Program; ATTEND Student in an Organized Health Care Education/Training Program

== ENCOUNTER 2024-04-23 11:32 | Observation (INO) ==
[2024-04-23] MEDS: Lactated Ringers 1000 ml BAG IV.FLUID IV ONE ×2 (11:40→13:10)
[2024-04-23 12:16] LABS: Venous Bicarbonate HCO3 18.2 mmol/L (24-28)
[2024-04-23 12:20] LABS: ABS Eosinophils 0.4 10^3/uL (0.0-0.5); ABS Lymphocytes 0.8 10^3/uL (1.0-4.8); ABS Monocytes 0.4 10^3/uL (0.0-1.1); ABS Neutrophils 5.8 10^3/uL (1.5-7.6); Eosinophil % 4.9 %; Hematocrit 30.9 % (38-53); Hemoglobin 10.1 g/dL (13.2-16.3); Lymphocyte % 11.3 %; Mean Corpuscular Hgb Conc 32.6 g/dL (31-36); Mean Corpuscular Volume 82.8 fL (80-97); Mean Platelet Volume 7.9 fL (7.5-11.2); Platelet Count 245 10^3/uL (150-450); Red Blood Count 3.73 10^6/uL (4.06-5.63); Red Cell Distribution Width 14.8 % (12-17); White Blood Count 7.4 10^3/uL (3.6-10.2)
[2024-04-23 12:49] LABS: High Sens Troponin Baseline 3 pg/mL (<20)
[2024-04-23 12:57] LABS: ALT 10 U/L (7-52); Albumin/Globulin Ratio 1.4 (1-3); Alkaline Phosphatase 63 U/L (35-149); Anion Gap 12 mmol/L (2-16); Blood Urea Nitrogen 18 mg/dL (6-24); CO2 Carbon Dioxide 17 mmol/L (22-32); Chloride 107 mmol/L (101-111); Creatinine, Serum 1.02 mg/dL (0.67-1.17); Globulin 2.2 g/dL (2-4); Glucose 474 mg/dL (70-100); Lipase < 10 U/L (11.0-82.0); Sodium 136 mmol/L (135-145); Total Bilirubin 0.5 mg/dL (0.2-1.0); Total Protein 5.2 g/dL (6.4-8.9); eGFR CKD-EPI 86.3 (>60)
[2024-04-23] MEDS: Ondansetron 4 mg VIAL 2 MG/ML 2 ml VIAL IV ONE (13:10)
[2024-04-23 13:49] LABS: High Sensitivity Troponin 1 Hr < 3 pg/mL (<20)
[2024-04-23 14:41] LABS: AST Redraw 12 U/L (13-39); Potassium Redraw 5.5 mmol/L (3.5-5.0)
[2024-04-23] MEDS ORDERED: Dextrose 50% Syringe 50 ml 25 GM/50 ML SYRINGE IV PUSH PRN ×2 (15:02→23:40)
[2024-04-23] MEDS: NORMOSOL-R pH 7.4 1000 mL BAG 1,000 ML IV ONE (15:08)
[2024-04-23] MEDS: Insulin Infusion 100unit/100mL 100 UNIT/100 ML BAG IV SCH (15:31)
[2024-04-23 16:13] LABS: Urine Appearance Clear; Urine Bilirubin Negative (Negative); Urine Blood Negative (Negative); Urine Color Colorless; Urine Glucose 4+ (>=1000 mg/dL) (Negative); Urine Ketones 1+ (Negative); Urine Nitrite Negative (Negative); Urine Protein Negative (Negative); Urine Urobilinogen Negative (Negative)
[2024-04-23] MEDS: NORMOSOL-R pH 7.4 1000 mL BAG 1,000 ML IV SCH (17:03)
[2024-04-23 17:18] LABS: Glucose Confirmatory 484 mg/dL (70-100)
[2024-04-23 20:17] LABS: Blood Urea Nitrogen 23 mg/dL (6-24); CO2 Carbon Dioxide 24 mmol/L (22-32); Calcium 8.3 mg/dL (8.6-10.3); Chloride 101 mmol/L (101-111); Creatinine, Serum 1.27 mg/dL (0.67-1.17); Glucose 363 mg/dL (70-100); Sodium 136 mmol/L (135-145); eGFR CKD-EPI 66.3 (>60)
[2024-04-23 20:18] LABS: Anion Gap 11 mmol/L (2-16)
[2024-04-24] MEDS: Insulin GLARGINE 100 un/ml 10 ml VIAL SUBCUT SCH ×2 (00:19→22:10)
[2024-04-24] MEDS: Enoxaparin 40 MG/0.4 ML SYR SUBCUT SCH (00:20)
[2024-04-24] MEDS ORDERED: Dextrose 50% Syringe 50 ml 25 GM/50 ML SYRINGE IV PUSH PRN ×2 (00:41→00:43)
[2024-04-24 06:29] LABS: ABS Basophils 0.1 10^3/uL (0.0-0.1); ABS Eosinophils 0.1 10^3/uL (0.0-0.5); ABS Lymphocytes 1.1 10^3/uL (1.0-4.8); ABS Monocytes 0.8 10^3/uL (0.0-1.1); ABS Neutrophils 12.1 10^3/uL (1.5-7.6); Eosinophil % 0.5 %; Hemoglobin 10.2 g/dL (13.2-16.3); Lymphocyte % 7.7 %; Mean Corpuscular Hemoglobin 26.3 pg (27-33); Mean Corpuscular Hgb Conc 32.8 g/dL (31-36); Mean Corpuscular Volume 80.3 fL (80-97); Mean Platelet Volume 7.6 fL (7.5-11.2); Platelet Count 318 10^3/uL (150-450); Red Blood Count 3.86 10^6/uL (4.06-5.63); Red Cell Distribution Width 14.6 % (12-17); White Blood Count 14.1 10^3/uL (3.6-10.2)
[2024-04-24 07:08] LABS: Albumin 3.4 g/dL (3.2-5.2); Albumin/Globulin Ratio 1.4 (1-3); Calcium 8.3 mg/dL (8.6-10.3); Creatinine, Serum 1.22 mg/dL (0.67-1.17); Globulin 2.4 g/dL (2-4); Potassium 4.5 mmol/L (3.5-5.0); Total Bilirubin 0.6 mg/dL (0.2-1.0); Total Protein 5.8 g/dL (6.4-8.9); eGFR CKD-EPI 69.6 (>60)
[2024-04-24] MEDS: Lactated Ringers 1000 ml BAG 1,000 ML IV SCH (10:12)
[2024-04-24 18:23] LABS: Ferritin 26.8 ng/mL (24-336)
[2024-04-25 06:41] LABS: ABS Basophils 0.1 10^3/uL (0.0-0.1); ABS Eosinophils 0.5 10^3/uL (0.0-0.5); ABS Lymphocytes 1.5 10^3/uL (1.0-4.8); ABS Monocytes 0.6 10^3/uL (0.0-1.1); ABS Neutrophils 4.8 10^3/uL (1.5-7.6); ABS Nucleated RBC 0.01 10^3/ul; Eosinophil % 6.3 %; Hematocrit 31.9 % (38-53); Hemoglobin 10.4 g/dL (13.2-16.3); Lymphocyte % 20.5 %; Mean Corpuscular Hemoglobin 26.9 pg (27-33); Mean Corpuscular Hgb Conc 32.7 g/dL (31-36); Mean Corpuscular Volume 82.4 fL (80-97); Mean Platelet Volume 7.8 fL (7.5-11.2); Nucleated Red Blood Cells % 0.1 %/100WBC (0.0-0.8); Platelet Count 259 10^3/uL (150-450); Red Blood Count 3.88 10^6/uL (4.06-5.63); Red Cell Distribution Width 14.4 % (12-17); White Blood Count 7.5 10^3/uL (3.6-10.2)
[2024-04-25 09:52] VITALS: BP 131/87
[2024-04-25] MEDS ORDERED: Insulin ASPART (NF) 1 UNIT SUBCUT SCH (21:00)
== END 2024-04-25 13:52 | disposition home or self-care (01) ==
LOC: ED 11:32 → EDHOLD 11:32 → SUATTDRO 22:10 → MEDTELE 04-24 02:03
PROVIDERS: ADMIT Internal Medicine; ATTEND Internal Medicine